=== PATIENT | female | born 1940 | race Caucasian/White ===

== ENCOUNTER → 2017-07-26 | Outpatient (CLI) | payer MEDICARE, BC ==
[~2017-07-26] MED LIST: ALPR1 PO; ASPI81CH PO; Aspir 8181 MG PO; CALCIUM ANTACI PO; CHOL10002 PO; DOCU100 PO; DULO30 PO; HYDACE5 PO; LEVSOD88 PO; LOVA20 PO; MULVIT PO; Milk of Magnesia PO; Multiple Vitam1 EAC1 PO; NAPR250 PO; OXYACE5T PO; ROSU10TA PO; RXOXYACE PO
[2017-07-31 11:28] LABS: HPV Genotype 16 Not Detected (NOTDET); HPV Genotype 18 Not Detected (NOTDET)
[2017-08-08 14:43] LABS: HPV High Risk Other Not Detected (NOTDET)
== END | disposition home or self-care (01) ==
LOC: LAB 16:47
PROVIDERS: Obstetrics & Gynecology
DX: Z01.419 Encounter for gynecological examination (general) (routine) without abnormal findings (principal); Z90.710 Acquired absence of both cervix and uterus
CPT/HCPCS: 87624; G0123

== ENCOUNTER → 2018-01-23 | Outpatient (CLI) | payer MEDICARE, BC | LOC: PLD 10:05 → LAB SHORT 10:05 | DX: D48.5 Neoplasm of uncertain behavior of skin (principal) ==

== ENCOUNTER → 2019-05-21 | Outpatient (CLI) | payer MEDICARE, BC | END | disposition home or self-care (01) | LOC: LAB SHORT 12:08 → PLD 12:08 | DX: D48.5 Neoplasm of uncertain behavior of skin (principal) | CPT/HCPCS: 88305 ==

== ENCOUNTER → 2019-12-30 | Outpatient (CLI) | payer MEDICARE, BC ==
[~2019-12-30] MED LIST changes: +Bactrim Ds Tab1 EACH PO; +KETO10 PO; +ONDA4ODT MM
[2019-12-30 19:58] LABS: Microalb/Creat Ratio UR, Rand 34.538 mg/g (0.000-30.000); Microalbumin, Random Urine 41.1 mg/L (0.000-20.000)
== END | disposition home or self-care (01) ==
LOC: LAB 13:00 → LAB SRC 13:00 → LAB SHORT 13:00
PROVIDERS: Family Medicine
DX: E11.9 Type 2 diabetes mellitus without complications (principal)
CPT/HCPCS: 82043; 82570

== ENCOUNTER → 2020-03-29 | Outpatient (CLI) | payer MEDICARE, BC ==
[2020-03-30 14:00] LABS: Stool Occult Bld Immuno 1 Negative (NEGATIVE)
== END | disposition home or self-care (01) ==
LOC: LAB SHORT 16:09 → LAB 16:09 → LAB FUT 01-06 07:50
PROVIDERS: Family Medicine
DX: Z12.11 Encounter for screening for malignant neoplasm of colon (principal)
CPT/HCPCS: G0328

== ENCOUNTER → 2021-10-28 | Outpatient (CLI) | payer MEDICARE, BC | LOC: LAB SHORT 17:02 | DX: E11.9 Type 2 diabetes mellitus without complications (principal) | CPT/HCPCS: 82043 ==

== ENCOUNTER → 2023-03-23 | Outpatient (CLI) | payer MEDICARE, BC | LOC: LAB 17:15 → LAB SHORT 17:15 | DX: E11.9 Type 2 diabetes mellitus without complications (principal) | CPT/HCPCS: 82043 ==

== ENCOUNTER 2023-06-28 08:00 | Emergency (ER) | payer MEDICARE, BC ==
[~2023-06-28] VITALS: Ht 154.9 cm; Wt 89.8 kg
[2023-06-28 08:15] VITALS: BP 130/90
[2023-06-28] MEDS ORDERED: Cleocin HCl300 MG PO (08:22)
== END 2023-06-28 08:38 | disposition home or self-care (01) ==
LOC: ER 08:00
DX: L03.213 Periorbital cellulitis (principal); Z88.1 Allergy status to other antibiotic agents; Z88.0 Allergy status to penicillin; Z91.048 Other nonmedicinal substance allergy status; Z91.040 Latex allergy status; Z79.899 Other long term (current) drug therapy
CPT/HCPCS: 99283; A9270

== ENCOUNTER 2025-02-10 12:06 | Emergency (ER) | payer MEDICARE, BC ==
[~2025-02-10] VITALS: Ht 157.5 cm; Wt 81.7 kg
[~2025-02-10 12:06] MED LIST changes: +Cleocin HCl300 MG PO
[2025-02-10 13:12] LABS: Alanine Aminotransfer (ALT/SGP 48.0 U/L (12-78); Albumin, Blood 3.4 g/dL (3.4-5.0); Albumin/Globulin Ratio 0.9 (0.8-1.8); Anion Gap 8.0 mmol/L (3-11); Aspartate Aminotrans (AST/SGOT 50.0 U/L (12-37); Bilirubin, Total 1.1 mg/dL (0.1-1.0); Blood Urea Nitrogen 15.0 mg/dL (8-24); CO2, Blood 25.0 mmol/L (21-32); Calcium, Blood 8.9 mg/dL (8.5-10.1); Chloride, Blood 109.0 mmol/L (98-108); Creatinine, Blood 1.12 mg/dL (0.40-1.00); Globulin, Blood 3.9 g/dL (2.2-4.0); Glucose, Blood 123.0 mg/dL (70-99); Potassium, Blood 3.4 mmol/L (3.5-5.5); Sodium, Blood 139.0 mmol/L (136-145); Total Protein, Blood 7.3 g/dL (6.4-8.2)
[2025-02-10 13:57] LABS: BASOPHILS ABSOLUTE AUTO 0.03 K/mm3 (0.00-0.23); BASOPHILS PERCENT AUTO 0 % (0-2); EOSINOPHILS ABSOLUTE AUTO 0.14 K/mm3 (0.00-0.68); EOSINOPHILS PERCENT AUTO 2 % (0-6); Hematocrit 41.9 % (33.0-51.0); Hemoglobin 13.7 g/dL (11.5-16.0); IMMATURE GRAN ABSOLUTE AUTO 0.01 K/mm3 (0.00-0.10); IMMATURE GRAN PERCENT AUTO 0 % (0-1); LYMPHOCYTES ABSOLUTE AUTO 2.99 K/mm3 (0.84-5.20); LYMPHOCYTES PERCENT AUTO 40 % (21-46); MONOCYTES ABSOLUTE AUTO 0.60 K/mm3 (0.16-1.47); MONOCYTES PERCENT AUTO 8 % (4-13); Mean Corpuscular HGB Conc 32.7 g/dL (31.5-36.5); Mean Corpuscular Volume 87 fL (80-100); NEUTROPHILS ABSOLUTE AUTO 3.73 K/mm3 (1.96-9.15); NEUTROPHILS PERCENT AUTO 50 % (41-73); NRBC ABSOLUTE 0.00 K/mm3 (0.00-0.02); NRBC Auto 0.0 /100 WBC (0.0-0.2); Platelet Count 287 K/mm3 (150-400); RDW Coefficient Variation 14.4 % (11.7-14.2); RDW Standard Deviation 46.6 fL (35.1-46.3)
[2025-02-10 16:29] LABS: Thyroid Stimulating Hormone 23.3 uIU/mL (0.360-4.800)
[2025-02-10 17:29] VITALS: BP 140/84
== END 2025-02-10 17:30 | disposition home or self-care (01) ==
LOC: ER 12:06
PROVIDERS: Emergency Medicine; Physical Medicine & Rehabilitation
DX: B34.9 Viral infection, unspecified (principal); Z88.1 Allergy status to other antibiotic agents; Z91.040 Latex allergy status; Z88.0 Allergy status to penicillin; Z88.8 Allergy status to other drugs, medicaments and biological substances; Z91.048 Other nonmedicinal substance allergy status; Z79.890 Hormone replacement therapy; Z79.899 Other long term (current) drug therapy
CPT/HCPCS: 36415; 71046; 80053; 83880; 84439; 84443; 84484; 85025; 93005; 93010; 99283-25

== ENCOUNTER 2025-06-11 10:53 | Emergency (ER) | payer MEDICARE, BC | END 2025-06-11 14:13 | disposition left against medical advice (07) | LOC: ER 10:53 | DX: K59.00 Constipation, unspecified (principal) ==